=== PATIENT | male | born 1970 | race Caucasian/White ===

== ENCOUNTER → 2016-08-27 | Day surgery (SDC) | payer OTHER ==
[~2016-08-27] MED LIST: DISCONTINUED MED PO; FIBER GUMMIES1 EACH PO; FISH OIL 1,0001 EAC2 PO; FISH OIL 1,0001 EAC4 PO; LIPITOR PO; MICARDIS PO; MICARDIS40 MG PO; MOBIC PO; PROTONIX PO
--- NOTE | ~2016-08-27 | EKG ---
PATIENT: LILIANA BOSE UNIT #: [id number] Ventricular Rate: 61 BPM Atrial Rate: 61 BPM P-R Interval: 150 ms QRS Duration: 88 ms Q-T Interval: 434 ms QTC Calculation(Bezet): 436 ms P Crowley: 28 degrees Calculated R Crowley: 8 degrees Calculated T Crowley: 39 degrees Diagnosis Line: Normal sinus rhythm Diagnosis Line: Normal ECG Diagnosis Line: No previous ECGs available Diagnosis Line: Confirmed by JAMEL DUBOIS MD ([id number]) on Diagnosis Line: 08/27/2016 12:08:45 PM INTERPRETING MD: SHERLY LAURENT
--- NOTE | ~2016-08-27 | OR ---
Unit #: [id number] #: [id number] Patient: LILIANA BOSE [id number] [address] [address] [id number] MR#: [id number] NAME: LILIANA BOSE. ROOM: Date of Procedure: 08/27/2016 Admission Date: 08/27/2016 Surgeon: Abhinav Kang M.D. : 1970 Attending Physician: Abhinav Kang M.D. Referring Physician: Abhinav Kang M.D. Primary Care Physician: Lacie Steele M.D. OPERATIVE REPORT PREOPERATIVE DIAGNOSIS Left hydrocele. POSTOPERATIVE DIAGNOSIS Left hydrocele. PROCEDURES PERFORMED Left hydrocelectomy and orchiopexy. ANESTHESIA General. DESCRIPTION OF PROCEDURE After informed consent, he was taken to the operating room, placed under general anesthetic, positioned supine, and his scrotum and penis were prepped and draped in the usual sterile fashion. An incision was made down the median raphae. His hydrocele sac was dissected free of the surrounding tissues. The sac was punctured and the fluid was drained. 500 mL of straw-colored fluid was removed. The testicle was inspected, it was normal. There was no visible or palpable masses. There was no torsion. The excess hydrocele sac was excised and sent to pathology. The edges of the sac were then sutured, so that the sac would not reform and hemostasis was achieved using electrocautery. The testicle was pexied to the scrotal wall. The scrotal wall was closed in multiple layers using chromic and Monocryl. The skin edges were then covered with Dermabond. 0.5% Marcaine was used for local anesthesia. There was no epinephrine included. All counts were correct at the end the procedure. The patient will be discharged home and will return to see me as an outpatient. Dictated by... Herbert Villegas/kinza TD: 08/27/2016 22:14 JOB #: [id number] Unit #: [id number] #: [id number] Patient: LILIANA BOSE OPERATIVE REPORT Page 1 of 1 X Abhinav Kang MD OPERATIVE NOTE
== END | disposition home or self-care (01) ==
LOC: CSUR 11:14
DX: N45.2 Orchitis (principal); N43.3 Hydrocele, unspecified; M19.90 Unspecified osteoarthritis, unspecified site; I10 Essential (primary) hypertension; E78.5 Hyperlipidemia, unspecified; Z88.1 Allergy status to other antibiotic agents; Z91.041 Radiographic dye allergy status; Z98.52 Vasectomy status; Z90.49 Acquired absence of other specified parts of digestive tract; Z98.890 Other specified postprocedural states; Z79.899 Other long term (current) drug therapy
CPT/HCPCS: 88304; 93005; J0690; J1100; J2250; J2405; J3010